=== PATIENT | male | born 1990 | race American Indian/Alaskan Native ===

== ENCOUNTER 2016-02-19 14:52 | Emergency (ER) | payer SELFPAY ==
[2016-02-19 15:56] VITALS: BP 118/80
[2016-02-19 19:59] LABS: Basophils % (Auto) 0.3 % (0.0-1.8); Eosinophils % (Auto) 0.2 % (0.0-4.3); Hematocrit 43.6 % (35.5-45.6); Hemoglobin 14.7 gm/dl (11.8-15.2); Mean Corpuscular HGB Conc 34 % (32-34); Mean Corpuscular Hemoglobin 29 pg (28-32); Mean Corpuscular Volume 85 fl (84-94); Platelet Count 244 K/mm3 (140-440); Red Blood Count 5.13 M/mm3 (3.65-5.03); Red Cell Distribution Width 13.3 % (13.2-15.2); White Blood Count 8.9 K/mm3 (4.5-11.0)
[2016-02-19 20:03] LABS: Anion Gap 20 mmol/L; B-Hydroxybutyrate 1.1 mg/dL (0.2-2.8); BUN/Creatinine Ratio 13.33; Blood Urea Nitrogen 12 mg/dL (9-20); Calcium 9.2 mg/dL (8.4-10.2); Carbon Dioxide 28 mmol/L (22-30); Chloride 93.7 mmol/L (98-107); Glucose 460 mg/dL (75-100); Potassium 4.3 mmol/L (3.6-5.0); Sodium 137 mmol/L (137-145)
[2016-02-19] MEDS ORDERED: NACL 0.9% 1000 ML 1,000 ML IV ONE ×2 (20:32→22:08)
[2016-02-19 21:07] LABS: Bilirubin,Urine NEG (Negative); Blood,Urine LG (Negative); Ketones,Urine NEG (Negative); Leukocyte Esterase,Urine SM (Negative); Mucus,Urine FEW /HPF; Nitrite,Urine NEG (Negative); Protein,Urine <15 mg/dL mg/dL (Negative); Urobilinogen,Urine < 2.0 mg/dL (<2.0); WBC,Urine < 1.0 /HPF (0.0-6.0)
--- NOTE | 2016-02-19 21:21 | Emergency Department Report ---
HPI - General Chief Complaint: Dizziness Time Seen by Provider: 02/19/16 19:26 - HPI HPI: 25-year-old male past medical history diabetes type 1 insulin-dependent presents with complaint of having broken glucose monitor at home feeling somewhat dizzy today, felt slightly dehydrated and was urinating frequently which is why he presented to the ED. Patient awake alert and oriented 3, not in acute distress does not appear uncomfortable states that he did not have a way to check his glucose because his monitors broken. States that he had not taken insulin today but just filled this prescription today. On insulin sliding scale and 15 units Lantus daily. Complaining of increased urinary frequency. ED Past Medical Hx - Past Medical History Hx Diabetes: Yes - Surgical History Past Surgical History?: No - Social History Smoking Status: Never Smoker Substance Use Type: None - Medications Home Medications: Home Medications Medication Instructions Recorded Confirmed Last Taken Type Ciprofloxacin HCl [Ciprofloxacin 500 mg PO Q12HR #20 tab 02/19/16 Unknown Rx TAB] Ibuprofen [Motrin] 600 mg PO Q8H PRN #25 tablet 02/19/16 Unknown Rx Tamsulosin [Flomax] 0.4 mg PO QDAY #10 cap 02/19/16 Unknown Rx ED Review of Systems ROS: Stated complaint: DIABETIC/HBS Other details as noted in HPI Constitutional: malaise. denies: chills, fever Eyes: denies: eye pain, eye discharge, vision change ENT: denies: ear pain, throat pain Respiratory: denies: cough, shortness of breath, wheezing Cardiovascular: denies: chest pain, palpitations Endocrine: no symptoms reported Gastrointestinal: denies: abdominal pain, nausea, diarrhea Genitourinary: denies: urgency, dysuria Musculoskeletal: denies: back pain, joint swelling, arthralgia Skin: denies: rash, lesions Neurological: denies: headache, weakness, paresthesias Psychiatric: denies: anxiety, depression Hematological/Lymphatic: denies: easy bleeding, easy bruising Physical Exam - Physical Exam Vital Signs: Vital Signs 02/19/16 15:44 Temperature 98.7 F Pulse Rate 101 H Respiratory 16 Rate Blood Pressure 118/80 O2 Sat by Pulse 100 Oximetry General: General: Well appearing, well nourished, in no distress. Oriented x 3, normal mood and affect .Ambulating without difficulty. Head: Normocephalic, atraumatic, no visible or palpable masses, depressions, or scaring. Eyes: Visual acuity intact, conjunctiva clear, sclera non-icteric, EOM intact, PERRLA Ears: EACs clear, TMs translucent & mobile, ossicles nl appearance, hearing intact. Nose: No external lesions, mucosa non-inflamed, septum and turbinates normal Mouth: Mucous membranes moist, no mucosal lesions. Teeth/Gums: No obvious caries or periodontal disease. No gingival inflammation or significant resorption. Pharynx: Mucosa non-inflamed, no tonsillar hypertrophy or exudate Neck: Supple, without lesions, bruits, or adenopathy, thyroid non-enlarged and non-tender Heart: No cardiomegaly or thrills; regular rate and rhythm, no murmur or gallop Lungs: Clear to auscultation and percussion Abdomen: Bowel sounds normal, no tenderness, organomegaly, masses, or hernia Back: Spine normal without deformity or tenderness, no CVA tenderness Musculoskeletal: Normal gait and station. No misalignment, asymmetry, crepitation, defects, tenderness, masses, effusions, decreased range of motion, instability, atrophy or abnormal strength or tone in the head, neck, spine, ribs, pelvis or extremities. Neurologic: CN 2-12 normal. ED Course Vital Signs 02/19/16 15:44 Temperature 98.7 F Pulse Rate 101 H Respiratory 16 Rate Blood Pressure 118/80 O2 Sat by Pulse 100 Oximetry ED Medical Decision Making - Lab Data Result diagrams: 02/19/16 19:38 02/19/16 19:38 - Medical Decision Making A/P: Hyperglycemia 1-patient hydrated with 2 L of normal saline, given 8 units of subcutaneous insulin, glucose trending lower, feels that he is at his baseline, refilled insulin prescription, has it readily available at home 2- anion gap minimal, is discussed with Dr. aKn 3- patient follow-up with primary medical doctor 4- patient has small amount of leukocytes and blood and urine, it is possibly recently passed a kidney stone, patient is able to urinate without any difficulty, no evidence of obstruction or overt infection /sepsis. Dr. Kan notified, as per Dr. Kan no need for ABX this time. Patient advised that if he develops flank pain foul-smelling urine fever or chills to return immediately and then we will image and treat him empirically. Critical care attestation.: If time is entered above; I have spent that time in minutes in the direct care of this critically ill patient, excluding procedure time. ED Disposition Clinical Impression: Hyperglycemia Disposition: DISCHARGED TO HOME OR SELFCARE Is pt being admited?: No Does the pt Need Aspirin: No Condition: Stable Instructions: Diabetic Hyperglycemia (ED) Prescriptions: Ciprofloxacin HCl [Ciprofloxacin TAB] 500 mg PO Q12HR #20 tab Tamsulosin [Flomax] 0.4 mg PO QDAY #10 cap Ibuprofen [Motrin] 600 mg PO Q8H PRN #25 tablet PRN Reason: Pain Referrals: PRIMARY CAREMD [Primary Care Provider] - 3-5 Days [facility] [Outside] - 3-5 Days BRY PABON MD [Staff Physician] - 3-5 Days Time of Disposition: 23:21
--- NOTE | 2016-02-19 22:24 | Admit Criteria Form ---
Admission Criteria Documentation: DIABETES: OBSERVATION CARE USE THIS FORM ONLY WHEN INPATIENT ADMISSION CRITERIA ARE NOT MET. (Place X for any and all applicable criteria): Placement for observation care may be appropriate for a patient with ANY ONE of the following(1)(2)(3): []I. Diabetic ketoacidosis [A] that cannot be corrected in the outpatient setting []II. Signs or symptoms secondary to hyperglycemia not corrected by outpatient treatment, including ANY ONE of the following: []a) Altered mental status []b) Significant hypovolemia or dehydration []c) Nausea or vomiting []d) Electrolyte abnormality []e) Plasma glucose greater than 600 mg/dL (33.3 mmol/L) []f) Serum osmolality greater than 320 mOsm/kg (mmol/kg) []III. Seizure, focal neurologic deficit, or other manifestations of altered sensorium due to suspected or documented hypoglycemia and ANY ONE of the following (4)(5): []a) Initial treatment has not resulted in rapid recovery. []b) Recurrence possible due to mechanism of hypoglycemia (eg, use of long-acting oral hypoglycemics) []IV. Gestational diabetes and rapid initiation of metabolic control needed to improve maternal and outcome (6) []V. A child whose situation includes ANY ONE of the following: []a) Clinical response to outpatient therapy uncertain []b) Outpatient supervision by parents or caregivers uncertain [X]. Other observation care needs (See General Criteria: Observation Care) The original [facility] content created by [employer] has been revised. The portions of the content which have been revised are identified through the use of italic text, and [facility] has neither reviewed nor approved the modified material. All other unmodified content is copyright [facility] [employer]. Please see references footnoted in the original [facility] [employer] edition 2015 Admission Criteria Met: Pending
== END 2016-02-20 00:18 | disposition home or self-care (01) ==
LOC: ED 14:52
DX: E11.65 Type 2 diabetes mellitus with hyperglycemia (principal)
CPT/HCPCS: 36415; 80048; 81001; 82010; 82550; 82805; 82962; 85025; 87086; 96360; 96361; 96372; 99283; J7030; J1815